=== PATIENT | female | born 1995 | race Caucasian/White ===

== ENCOUNTER 2017-06-07 06:51 | Day surgery (SDC) | payer OTHER ==
[2017-05-24 10:00] VITALS: BMI 23.2
[2017-06-07 07:19] VITALS: O2SAT 100
[2017-06-07] MEDS ORDERED: Propofol 10 mg/ml Inj (20 ML) ONE (08:56)
--- NOTE | 2017-06-07 08:57 | CP.SDSHP ---
Same Day Surgery H & P - History Proposed Procedure: colonoscopy Pre-Op Diagnosis: colitis - Allergies Allergies: Allergies No Known Allergies Allergy (Verified 06/06/17 15:30) - Physical Exam General Appearance: NAD Vital Signs: Vital Signs 06/07/17 07:11 Temperature 98.9 F Pulse Rate 66 Respiratory 19 Rate Blood Pressure 135/67 O2 Sat by Pulse 100 Oximetry Mental Status: Alert & Oriented x3 Neuro: WNL Heart: WNL Lungs: WNL GI: WNL - {Optional Preform as Required} Abdomen: WNL - Impression Pt. Evaluated Today:Candidate for Anesthesia & Procedure: Yes - Date & Time Date: 06/07/17 Time: 08:57 Short Stay Discharge - Short Stay Discharge Admitting Diagnosis/Reason for Visit: NONINFECTIVE GASTROENTERITIS AND COLITIS, UNSPECIF Disposition: HOME/ ROUTINE
[2017-06-07] MEDS ORDERED: Midazolam 2 MG/2 ML VIAL ONE (08:58)
[2017-06-07 09:44] VITALS: RESP 15; TEMP 98.1
[2017-06-07 10:03] VITALS: PULSE 62
[2017-06-07 10:47] VITALS: BP 104/61
== END 2017-06-07 10:40 | disposition home or self-care (01) ==
LOC: C.ENDO 06:51
PROVIDERS: ATTEND Internal Medicine Gastroenterology
DX: K51.90 Ulcerative colitis, unspecified, without complications (principal); K64.1 Second degree hemorrhoids
CPT/HCPCS: 45380; 84703; 88305; J2001; J2250; J2704